=== PATIENT | male | born 1980 | race Caucasian/White ===

== ENCOUNTER 2019-03-04 21:52 | Emergency (ER) | payer BC, OTHER ==
--- NOTE | 2019-03-04 23:55 | EDM.PDOC ---
ED HPI GENERAL MEDICAL PROBLEM - General Chief Complaint: Chest Pain Stated Complaint: CHEST PAIN Time Seen by Provider: 03/04/19 22:02 Source of Information: Reports: Patient History Limitations: Reports: No Limitations - History of Present Illness INITIAL COMMENTS - FREE TEXT/NARRATIVE: The patient presents with bilateral chest pain. This started this evening when the patient was doing some yard work. The pain is gone now but when he bends over to pick some thing up he can feel it. He has no shortness of breath with it. He has no sweating or nausea with it. He has no fever, chills, cough, congestion, runny nose, abdominal pain, or vomiting. He has no history of heart disease. He does not smoke. He has no history of diabetes, hypertension , or hypercholesterolemia. The pain is like a tightness. Onset: Gradual Duration: Hour(s): Location: Reports: Chest Quality: Reports: Other (Tightness) Severity: Mild Improves with: Reports: None Worsens with: Reports: None Context: Reports: Lifting Associated Symptoms: Reports: Chest Pain. Denies: Cough, Fever/Chills, Headaches, Nausea/Vomiting, Shortness of Breath Bilateral Chest Pain Score (Numeric/FACES): 5 - Related Data Allergies Allergy/AdvReac Type Severity Reaction Status Date / Time No Known Allergies Allergy Verified 03/04/19 22:00 Home Meds: Home Meds Methotrexate 03/04/19 [History] Past Medical History HEENT History: Reports: Impaired Vision Other HEENT History: Wears glasses Musculoskeletal History: Reports: RA Social & Family History - Tobacco Use Smoking Status *Q: Never Smoker - Recreational Drug Use Recreational Drug Use: No ED ROS GENERAL - Review of Systems Review Of Systems: See Below Constitutional: Reports: No Symptoms HEENT: Reports: No Symptoms Respiratory: Reports: No Symptoms Cardiovascular: Reports: Chest Pain Endocrine: Reports: No Symptoms GI/Abdominal: Reports: No Symptoms : Reports: No Symptoms Musculoskeletal: Reports: No Symptoms Skin: Reports: No Symptoms ED EXAM, GENERAL - Physical Exam Exam: See Below Exam Limited By: No Limitations General Appearance: Alert, No Apparent Distress Ears: Normal External Exam Nose: Normal Inspection Head: Atraumatic, Normocephalic Neck: Normal Inspection Respiratory/Chest: No Respiratory Distress, Lungs Clear, Normal Breath Sounds Cardiovascular: Regular Rate, Rhythm, No Edema, No Murmur GI/Abdominal: Soft, Non-Tender, No Organomegaly, No Mass Back Exam: Normal Inspection Extremities: Normal Inspection EKG INTERPRETATION EKG Date: 03/04/19 Time: 21:58 Rhythm: NSR Rate (Beats/Min): 92 [place]: Normal P-Wave: Present QRS: Normal ST-T: Normal QT: Normal Course - Vital Signs Last Recorded V/S: Last Vital Signs Temp 97.3 F 03/04/19 21:58 Pulse 92 03/04/19 21:58 Resp 24 H 03/04/19 21:58 BP 142/102 H 03/04/19 21:58 Pulse Ox 96 03/04/19 21:58 - Orders/Labs/Meds Orders: Active Orders 24 hr Category Date Time Status EKG Documentation Completion [RC] ASDIRECTED Care 03/04/19 23:55 Active EKG Documentation Completion [RC] STAT Care 03/04/19 22:07 Active Chest 1V Frontal [CR] Stat Exams 03/04/19 22:07 Taken TROPONIN I [CHEM] Stat Lab 03/04/19 23:56 Ordered EKG 12 Lead [EK] Stat Ther 03/04/19 23:55 Ordered Labs: Laboratory Tests 03/04/19 03/04/19 Range/Units 22:00 22:00 WBC 8.31 (4.23-9.07) K/mm3 RBC 4.77 (4.63-6.08) M/mm3 Hgb 15.1 (13.7-17.5) gm/L Hct 42.8 (40.1-51.0) % MCV 89.7 (79.0-92.2) fl MCH 31.7 (25.7-32.2) pg MCHC 35.3 (32.2-35.5) g/dl RDW Std Deviation 41.6 (35.1-43.9) fL Plt Count 235 (163-337) K/mm3 MPV 9.8 (9.4-12.3) fl Neutrophils % (Manual) 77 H (40-60) % Band Neutrophils % 0 (0-10) % Lymphocytes % (Manual) 19 L (20-40) % Atypical Lymphs % 0 % Monocytes % (Manual) 2 (2-10) % Eosinophils % (Manual) 1 (0.8-7.0) % Basophils % (Manual) 1 (0.2-1.2) Platelet Estimate Adequate RBC Morph Comment Normal Sodium 138 (136-145) mEq/L Potassium 3.9 (3.5-5.1) mEq/L Chloride 103 (98-107) mEq/L Carbon Dioxide 25 (21-32) mEq/L Anion Gap 13.9 (5-15) BUN 20 H (7-18) mg/dL Creatinine 1.0 (0.7-1.3) mg/dL Est Cr Clr Drug Dosing TNP Estimated GFR (MDRD) > 60 (>60) mL/min BUN/Creatinine Ratio 20.0 H (14-18) Glucose 111 H (74-106) mg/dL Calcium 8.9 (8.5-10.1) mg/dL Total Bilirubin 0.6 (0.2-1.0) mg/dL AST 23 (15-37) U/L ALT 41 (16-63) U/L Alkaline Phosphatase 93 (46-116) U/L Troponin I < 0.017 (0.00-0.056) ng/mL Total Protein 7.4 (6.4-8.2) g/dl Albumin 4.1 (3.4-5.0) g/dl Globulin 3.3 gm/dL Albumin/Globulin Ratio 1.2 (1-2) - Re-Assessments/Exams Free Text/Narrative Re-Assessment/Exam: 03/04/19 23:54 I ordered an EKG, labs and a CXR. His EKG shows a NSR with no acute changes. His CBC and CMP look good. His troponin is negative. I will get a repeat EKG and troponin and discharge him home. I feel this is chest wall pain. 03/05/19 00:12 His repeat EKG shows nothing acute. I have ordered a repeat troponin that I suspect will be negative. I will discharge him and if it is abnormal I will call him. Departure - Departure Time of Disposition: 00:15 Disposition: Home, Self-Care 01 Condition: Good Clinical Impression: Atypical chest pain, Chest wall pain Referrals: Salvador Johnson MD [Primary Care Provider] - 1 Week Forms: ED Department Discharge Additional Instructions: Take tylenol or motrin for pain. Follow up with Dr Anthony in a week. Please return if you are worse. - My Orders Last 24 Hours: My Active Orders 03/04/19 22:07 EKG Documentation Completion [RC] STAT Chest 1V Frontal [CR] Stat 03/04/19 23:55 EKG Documentation Completion [RC] ASDIRECTED EKG 12 Lead [EK] Stat 03/04/19 23:56 TROPONIN I [CHEM] Stat - Assessment/Plan Last 24 Hours: My Active Orders 03/04/19 22:07 EKG Documentation Completion [RC] STAT Chest 1V Frontal [CR] Stat 03/04/19 23:55 EKG Documentation Completion [RC] ASDIRECTED EKG 12 Lead [EK] Stat 03/04/19 23:56 TROPONIN I [CHEM] Stat
--- NOTE | 2019-03-05 08:07 | CR ---
Chest: Portable view of the chest was obtained. Comparison: No prior chest x-ray. Heart size and mediastinum are within normal limits for portable technique. Lungs are clear with no acute parenchymal change. Bony structures are grossly intact. Impression: 1. Nothing acute is seen on portable chest x-ray. Diagnostic code #1
== END 2019-03-05 00:20 | disposition home or self-care (01) ==
LOC: JD.ED 21:52
DX: R07.89 Other chest pain (principal); M06.9 Rheumatoid arthritis, unspecified
CPT/HCPCS: 36415; 71045; 71045-26; 80053; 84484; 85007; 85027; 93005; 93010; 99284; 99285-25